=== PATIENT | female | born 1980 | race Caucasian/White ===

== ENCOUNTER → 2020-04-12 13:40 | Outpatient (BNVA) | payer OTHER, SELFPAY | PROVIDERS: Visit Provider Nurse Practitioner Family | DX: Z20.828 Contact with and (suspected) exposure to other viral communicable diseases (principal); J06.9 Acute upper respiratory infection, unspecified; R43.0 Anosmia | CPT/HCPCS: 87635 ==

== ENCOUNTER 2020-06-28 08:57 | Outpatient (CLI) | payer OTHER, SELFPAY ==
--- NOTE | 2020-06-28 09:15 | XR_ITS ---
WS: [id number] CERVICAL SPINE TECHNIQUE: 3 views of the cervical spine CLINICAL INFORMATION: NECK PAIN COMPARISON: None. FINDINGS: Straightening of the normal cervical lordosis. Normal C1-2 articulation. Mild joint space narrowing C 5-6. Slight anterior hypertrophic spurring at C5-6. Lung apices are well aerated. Mild facet arthropa thy throughout the cervical spine. XR/XR cervical spine 3V* [id number] IMPRESSION: 1. Straightening of the normal cervical lordosis with mild spondylitic changes . 2. Disc space narrowing worse at C5-6.
== END 2020-06-28 08:58 | disposition home or self-care (01) ==
LOC: RADOUTREAD 09:08 → RADWPI 09:37
PROVIDERS: PCP Nurse Practitioner Family; Visit Provider Nurse Practitioner Family
DX: M54.2 Cervicalgia (principal)
CPT/HCPCS: 72040

== ENCOUNTER → 2022-03-01 13:00 | Outpatient (BNVA) | payer OTHER, BC, SELFPAY | PROVIDERS: Visit Provider Obstetrics & Gynecology | DX: Z12.4 Encounter for screening for malignant neoplasm of cervix (principal) | CPT/HCPCS: 87624 ==

== ENCOUNTER 2023-07-19 10:58 | Outpatient (CLI) | payer OTHER, SELFPAY ==
--- NOTE | 2023-07-19 11:13 | XR_ITS ---
WS: [id number] Cervical spine, 3 views, 07/19/2023 Clinical Data: cervical radicular pain Comparison: Cervical spine, 06/28/2020 Findings: No compression fractures are seen. There is minimal degenerative disc narrowing at C5-C6 wi th anterior spurring. There is no prevertebral soft tissue swelling. The odontoid is unremarkable. Th e soft tissues of the neck and the lung apices are normal. Impression: Degenerative disc narrowing at C5-C6 with small anterior osteophytes.
== END 2023-07-19 10:59 | disposition home or self-care (01) ==
LOC: RAD 11:01
PROVIDERS: PCP Family Medicine; Visit Provider Family Medicine
DX: M50.122 Cervical disc disorder at C5-C6 level with radiculopathy (principal)
CPT/HCPCS: 72040; 84443; 85651; 86140

== ENCOUNTER 2023-08-07 12:59 | Outpatient (CLI) | payer OTHER, SELFPAY ==
--- NOTE | 2023-08-07 13:03 | XRR_ITS ---
PROCEDURE INFORMATION: Exam: XR Bilateral Sacroiliac Joints Exam date and time: 08/07/2023 1:06 PM Age: 43 years old Clinical indication: Pain in coccyx area; Additional info: Chronic low back si joint tailbone pain TECHNIQUE: Imaging protocol: XR bilateral XR of the sacroiliac joints. Views: 3 or more views. COMPARISON: CR XR lumbar spine 2-3V* [id number] 08/07/2023 1:06 PM FINDINGS: Bones/joints: Minimal left-sided SI joint spurring on the inferior portion of the iliac side of the joint. No fracture or bony destructive lesion. Soft tissues: Normal. Organs: IUD in place. XR/XR sacroiliac jts m 3V [id number] IMPRESSION: Minimal left-sided SI joint spurring on the inferior portion of the iliac side of the joint.
--- NOTE | 2023-08-07 13:03 | XRR_ITS ---
PROCEDURE INFORMATION: Exam: XR Sacrum and Coccyx, 2 or More Views Exam date and time: 08/07/2023 1:06 PM Age: 43 years old Clinical indication: Pain in coccyx area; Additional info: Chronic low back si joint tailbone pain TECHNIQUE: Imaging protocol: XR of the sacrum and coccyx, 2 or more views. COMPARISON: CR XR lumbar spine 2-3V* [id number] 08/07/2023 1:06 PM FINDINGS: Bones/joints: Normal. No acute fracture. Soft tissues: Normal. Organs: IUD in place. XR/XR sacrum coccyx min 2V [id number] IMPRESSION: No acute findings.
--- NOTE | 2023-08-07 13:03 | XRR_ITS ---
PROCEDURE INFORMATION: Exam: XR Lumbosacral Spine Exam date and time: 08/07/2023 1:06 PM Age: 43 years old Clinical indication: Low back pain; Additional info: Chronic low back si joint tailbone pain TECHNIQUE: Imaging protocol: Radiologic exam of the lumbosacral spine. Views: 2 or 3 views. COMPARISON: CR XR sacrum coccyx min 2V [id number] 08/07/2023 1:06 PM FINDINGS: Bones/joints: Mild degenerative disc disease L4-L5 L5-S1. No fracture or bony destructive lesion. Soft tissues: Unremarkable. Organs: IUD in place. XR/XR lumbar spine 2-3V* [id number] IMPRESSION: No acute findings.
== END 2023-08-07 13:00 | disposition home or self-care (01) ==
LOC: RAD 13:00
PROVIDERS: PCP Family Medicine; Visit Provider Family Medicine
DX: M53.3 Sacrococcygeal disorders, not elsewhere classified (principal); M51.37 Other intervertebral disc degeneration, lumbosacral region
CPT/HCPCS: 72100; 72202; 72220; 82306

== ENCOUNTER 2023-10-08 11:27 | Outpatient (CLI) | payer OTHER, BC, SELFPAY ==
--- NOTE | 2023-10-08 11:45 | MR_ITS ---
WS: [id number] MRI LUMBAR SPINE NONCONTRAST HISTORY: M54.16 - Radiculopathy, lumbar region COMPARISON: None available. TECHNIQUE: Sagittal and axial multisequence imaging is submitted. Normal lumbar alignment with no compression fractures or marrow edema. Disc spaces and vertebral body heights are well-preserved. Conus terminates normally at L1-2 disc level. L1-L2: Normal. L2-L3: Normal. L3-L4: Mild ligamentum flavum and facet arthritis. L4-L5: Mild diffuse annular disc bulging with ligamentum flavum and facet disease. Small amount of fl uid in the facet joints. There is very slight disc contact on the RIGHT traversing L5 nerve root but no displacement. L5-S1: Mild annular disc bulging with a very shallow central disc protrusion. The disc bulging very s lightly contacts the RIGHT S1 nerve root with no displacement. No significant stenosis. MR/MR lumbar spine wo con* [id number] IMPRESSION: 1. No high-grade central or foraminal stenosis. 2. Very slight disc contact on the RIGHT traversing L5 and S1 nerve roots with out displacement. Very minimal contact with no stenosis. 3. No fractures. 4. Mild facet joint arthritis at L4-5.
== END 2023-10-08 11:28 | disposition home or self-care (01) ==
LOC: RAD 11:27
PROVIDERS: PCP Family Medicine; Visit Provider Anesthesiology Pain Medicine
DX: M47.26 Other spondylosis with radiculopathy, lumbar region (principal)
CPT/HCPCS: 72148

== ENCOUNTER 2023-10-10 14:00 | Outpatient (CLI) | payer OTHER, BC, SELFPAY | END 2023-10-10 14:01 | disposition home or self-care (01) | LOC: SLEEP 10-11 11:44 | PROVIDERS: PCP Family Medicine; Visit Provider Family Medicine | DX: G47.33 Obstructive sleep apnea (adult) (pediatric) (principal) | CPT/HCPCS: G0399 ==

== ENCOUNTER 2024-01-07 10:44 | Outpatient (CLI) | payer OTHER, BC, SELFPAY ==
--- NOTE | 2024-01-07 10:52 | XR_ITS ---
WS: [id number] XR hip RT 2-3V wo/w pel* [id number] REASON FOR EXAM: right hip pain FINDINGS: No fracture or focal bone lesion. Joint spaces intact and relatively well preserved. Minimal subchondral sclerosis and osteophytosis of the acetabulum. No soft tissue abnormality. XR/XR hip RT 2-3V wo/w pel* [id number] IMPRESSION: Minimal osteoarthritis.
== END 2024-01-07 10:45 | disposition home or self-care (01) ==
LOC: RAD 10:49
PROVIDERS: PCP Family Medicine; Visit Provider Family Medicine
DX: M25.551 Pain in right hip (principal)
CPT/HCPCS: 73502

== ENCOUNTER 2024-02-28 13:31 | Outpatient (CLI) | payer OTHER, BC, SELFPAY ==
--- NOTE | 2024-02-28 13:45 | MR_ITS ---
WS: [id number] MRI HEAD WITH CONTRAST TECHNIQUE: Sagittal T1, T2 axial, T2 axial FLAIR, axial susceptibility weighted imaging, axial diffus ion weighted images, and coronal T2 images were obtained. Pre and post-T1 axial and post T1 coronal i mages. ADC and FSPGR images. CLINICAL INFORMATION: multiple sclerosis testing COMPARISON: None. FINDINGS: No evidence of restricted diffusion to suggest acute ischemia. Ventricular system and basal cisterns are patent. A few small foci of hyperintensity in the supratentorial white matter mainly in a frontal and periventricular distribution. This is nonspecific in a patient this age but can be seen with hyp ertension, diabetes and migraine headaches. Demyelinating disease is an additional consideration cons idering history No abnormal gadolinium enhancement. Corpus callosum appears normal. No hemosiderin on susceptibly margo ghted images. IMPRESSION 1. No evidence of restricted diffusion to suggest acute ischemia. 2. Mild patchy supratentorial white matter changes nonspecific in a patient of this age but can be s een with hypertension, diabetes, and migraine headaches. Demyelinating disease is an additional consi deration given history 3. Corpus callosum appears normal. 4. No abnormal gadolinium enhancement. 5. No hemosiderin on the susceptibly weighted images.
[2024-02-28] MEDS: gadobenate dimeglumine 20 mL vial 16 ML IV (14:59)
== END 2024-02-28 13:32 | disposition home or self-care (01) ==
LOC: RAD 13:32
PROVIDERS: PCP Family Medicine; Visit Provider Family Medicine
DX: M62.81 Muscle weakness (generalized) (principal); R20.0 Anesthesia of skin; R20.2 Paresthesia of skin
CPT/HCPCS: 70553

== ENCOUNTER → 2024-03-14 10:03 | Outpatient (BNVA) | payer OTHER, BC, SELFPAY | PROVIDERS: PCP Family Medicine; Visit Provider Student in an Organized Health Care Education/Training Program | DX: G56.01 Carpal tunnel syndrome, right upper limb (principal) | CPT/HCPCS: 73130 ==

== ENCOUNTER → 2024-03-25 07:19 | Outpatient (BNVA) | payer OTHER, BC, SELFPAY | PROVIDERS: PCP Family Medicine; Visit Provider Family Medicine | DX: Z00.00 Encounter for general adult medical examination without abnormal findings (principal) | CPT/HCPCS: 80053; 80061; 83036; 84443; 85025 ==

== ENCOUNTER → 2024-04-02 13:11 | Outpatient (BNVA) | payer OTHER, BC, SELFPAY | PROVIDERS: PCP Family Medicine; Visit Provider Nurse Practitioner Women's Health | DX: Z30.431 Encounter for routine checking of intrauterine contraceptive device (principal) | CPT/HCPCS: 76830 ==

== ENCOUNTER 2024-04-10 07:07 | Outpatient (CLI) | payer OTHER, BC, SELFPAY ==
--- NOTE | 2024-04-10 07:15 | MR_ITS ---
WS: [id number] MRI CERVICAL SPINE NONCONTRAST TECHNIQUE: Sagittal T1, T2 and STIR imaging. Axial T2, gradient, and fiesta imaging. CLINICAL INFORMATION: cervical radiculopathy COMPARISON: None. FINDINGS: Straightening of the normal cervical lordosis. Cord signal is normal. Disc bulging worse at C4-C6. C2-C3: Mild facet arthropathy. Mild RIGHT foraminal narrowing. C3-C4: Mild facet arthropathy. Spinal canal and foramen are patent. C4-C5: Mild disc bulge with osteophytic ridging. Mild facet arthropathy. Spinal canal and foramen are patent. C5-C6: Mild disc osteophyte complex with endplate ridging. Mild LEFT foraminal narrowing. Spinal gerald l is patent. Mild facet arthropathy. C6-C7: Mild disc osteophyte complex with slight indentation on the cervical cord. Mild central canal stenosis. Moderate to severe LEFT bony foraminal narrowing. RIGHT foramen is patent. Mild facet arthr opathy. C7-T1: Spinal canal and foramen are patent. Visualized brain stem structures: Normal. Prevertebral soft tissues: Normal. Slightly low-lying cerebellar tonsils. MR/MR cervical spin wo con* [id number] IMPRESSION: 1. Disc osteophyte complex with small central protrusion C6-7. Mild central ca nal stenosis. Moderate to severe LEFT bony foraminal narrowing at this level. 2. Mild LEFT C5-C6 bony foraminal narrowing.
== END 2024-04-10 07:08 | disposition home or self-care (01) ==
LOC: RAD 07:08
PROVIDERS: PCP Family Medicine; Visit Provider Family Medicine
DX: M54.12 Radiculopathy, cervical region (principal); M99.61 Osseous and subluxation stenosis of intervertebral foramina of cervical region; M25.78 Osteophyte, vertebrae
CPT/HCPCS: 72141

== ENCOUNTER → 2024-04-17 11:14 | Outpatient (BNVA) | payer OTHER, BC, SELFPAY | PROVIDERS: PCP Family Medicine; Visit Provider Student in an Organized Health Care Education/Training Program | DX: M25.551 Pain in right hip (principal) | CPT/HCPCS: 73502 ==

== ENCOUNTER → 2024-04-22 08:49 | Outpatient (BNVA) | payer OTHER, BC, SELFPAY | PROVIDERS: PCP Family Medicine; Referring Provider Family Medicine; Visit Provider Orthopaedic Surgery | DX: M54.12 Radiculopathy, cervical region (principal) | CPT/HCPCS: 72050 ==

== ENCOUNTER 2024-05-21 09:51 | Day surgery (SDC) | payer OTHER, BC, SELFPAY ==
[2024-05-21 10:14] VITALS: BP 132/82; PULSE 70; RESP 18; TEMP 36.7; O2SAT 98
[2024-05-21 10:15] VITALS: BMI 30.9
[2024-05-21 10:15] LABS: OR HCG Qualitative Urine Negative (Negative)
[2024-05-21] MEDS: sodium chloride 0.9% 1,000 ML 30 ML IV (10:27)
[2024-05-21] MEDS: acetaminophen 1,000 MG/100 ML PIGGYBACK 400 MG IV (10:28)
[2024-05-21] MEDS: ketorolac 30 mg/mL INJ IVP (10:31)
[2024-05-21] MEDS: scopolamine 1 mg PATCH 1 PATCH TRANSDERMA (10:32)
--- NOTE | 2024-05-21 10:57 | P.ANESASSM_ITS ---
Pre-Anesthetic Assessment Height/Weight: Height 5 ft 1 in Weight 164 lb Temp Pulse Resp BP Pulse Ox O2 Del Method 98.1 F 70 18 132/82 98 Room Air 05/21/24 10:14 05/21/24 10:14 05/21/24 10:14 05/21/24 10:14 05/21/24 10:14 05/21/24 10:18 Preop Diagnosis: Carpal tunnel syndrome Operation Date: 05/21/24 12:05 Proposed Procedures p Carpal Tunnel Release(Right) - Jamie Perez, DO Was Beta Holly taken within 24 hours: N/A Was Clonidine taken within 24 hours: N/A Last intake: Intake Last Liquid Date 05/20/24 Last Liquid Time 22:00 Last Solid Date 05/20/24 Last Solid Time 22:00 Social No alcohol and No tobacco Exam alert, oriented x 3, clear to auscultation bilaterally and regular rate & rhythm Airway Submandibular: within normal limits Cervical ROM: within normal limits Mallampati: Class II Dentition: full Anesthetic Plan ASA status: 3 Anesthesia: MAC Other: No prior issues with anesthesia NPO since yesterday History of MARIUM, on CPAP GERD on omeprazole Chronic migraines Patient is able to perform ADLs hCG negative Plan for MAC anesthesia with local via surgeon Medications/Allergies Home Medications Medication Instructions Recorded Confirmed Last Taken Type omeprazole 40 mg capsule,delayed 40 mg PO DAILY #90 caps 08/07/23 05/20/24 05/20/24 Rx release CPAP (Auto-Titrating CPAP) #1 ea 10/17/23 04/22/24 Unknown Rx levonorgestrel 21 mcg/24 hr (up to intrauterine 04/01/24 04/22/24 Unknown History 8 years) 52 mg intrauterine device (Mirena) meloxicam 7.5 mg tablet 7.5 mg PO DAILY #30 tabs 04/26/24 05/20/24 Unknown Rx venlafaxine 37.5 mg 37.5 mg PO DAILY #90 caps 04/26/24 05/20/24 05/20/24 Rx capsule,extended release 24 hr (Effexor XR) gabapentin 300 mg capsule 300 mg PO BID 05/20/24 05/20/24 05/20/24 History Allergies Allergy/AdvReac Type Severity Reaction Status Date / Time amoxicillin Allergy Severe tongue Verified 04/22/24 08:52 swelling sumatriptan [From Imitrex] Allergy Severe shortness Verified 04/22/24 08:52 of breath, burning in neck and back tramadol Allergy Severe burning in Verified 04/22/24 08:52 neck, shortness of breath, chest pressure, n/v carbamazepine [From Tegretol] Allergy Intermediate rash Verified 04/22/24 08:52 latex Allergy Mild ADR-Itching Verified 04/22/24 08:52 Current Medications Generic Name Dose Route Start Last Admin Trade Name Aditi PRN Reason Stop Dose Admin Sodium Chloride 1,000 mls @ 30 mls/hr 05/21/24 10:15 05/21/24 10:27 Sodium Chloride 0.9% IV 05/22/24 10:14 30 mls/hr .Q24H DARLINE Administration PFSH Anesthesia Medical History History of gestational diabetes History of seizure disorder petit mal seizures as a child, off of meds since 1995 Depression Anxiety Migraines Chronic fatigue syndrome Fibromyalgia GERD (gastroesophageal reflux disease) Surgical History History of laparoscopic cholecystectomy Family History Mother Hypercholesteremia Thyroid disease Hypertension Grandfather Diabetes Denies family history of Colon cancer Ovarian cancer Heart disease Breast cancer Uterine cancer Stroke Social History Smoking and tobacco/nicotine status: never used tobacco/nicotine Quit status (tobacco/nicotine): has quit using Year quit tobacco: 2013 Alcohol intake: never Substance/Drug Use: never Lives independently: Yes Household members: spouse and children Marital status: Marital status details: 2003 Number of children: 3 Current occupational status: employed 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
--- NOTE | 2024-05-21 12:11 | P.HP_ITS ---
Same Day Surgery H&P Indication for Procedure/HPI DATE OF PROCEDURE: May 21, 2024 CHIEF COMPLAINT/INDICATIONFOR SURGICAL PROCEDURE: Right carpal tunnel syndrome PREOP DIAGNOSIS: Right carpal tunnel syndrome PLANNED PROCEDURE: Operation Date: 05/21/24 12:05 Proposed Procedures p Carpal Tunnel Release(Right) - Jamie Perez DO Medications/Allergies* Home Medications Medication Instructions Recorded Confirmed Type levonorgestrel 21 mcg/24 hr (up to intrauterine 04/01/24 04/22/24 History 8 years) 52 mg intrauterine device (Mirena) gabapentin 300 mg capsule 300 mg PO BID 05/20/24 05/20/24 History Allergies/Adverse Reactions Allergy/AdvReac Type Severity Reaction Status Date / Time amoxicillin Allergy Severe tongue Verified 04/22/24 08:52 swelling sumatriptan [From Imitrex] Allergy Severe shortness Verified 04/22/24 08:52 of breath, burning in neck and back tramadol Allergy Severe burning in Verified 04/22/24 08:52 neck, shortness of breath, chest pressure, n/v carbamazepine [From Tegretol] Allergy Intermediate rash Verified 04/22/24 08:52 latex Allergy Mild ADR-Itching Verified 04/22/24 08:52 Current Medications: Generic Name Dose Route Start Last Admin Trade Name Freq PRN Reason Stop Dose Admin Sodium Chloride 1,000 mls @ 30 mls/hr 05/21/24 10:15 05/21/24 10:27 Sodium Chloride 0.9% IV 05/22/24 10:14 30 mls/hr .Q24H DARLINE Administration Pertinent History/Comorbid Conditions* Medical History (Updated 04/15/24 @ 16:12 by Queenie Moura NP) History of gestational diabetes History of seizure disorder petit mal seizures as a child, off of meds since 1995 Depression Anxiety Migraines Chronic fatigue syndrome Fibromyalgia GERD (gastroesophageal reflux disease) Surgical History (Updated 01/18/21 @ 10:06 by Apple Renteria DO) History of laparoscopic cholecystectomy Family History (Updated 07/19/23 @ 10:20 by Maureen Estrella MD) Diabetes Grandfather Hypercholesteremia Mother Hypertension Mother Thyroid disease Mother Denies family history of Colon cancer Ovarian cancer Heart disease Breast cancer Uterine cancer Stroke Social History Smoking and tobacco/nicotine status: never used tobacco/nicotine Quit status (tobacco/nicotine): has quit using Year quit tobacco: 2014 Alcohol intake: never Substance/Drug Use: never Lives independently: Yes Household members: spouse and children Marital status: Marital status details: 2003 Number of children: 3 Current occupational status: employed 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 No pain. Negative Spurling's Negative Stephenson's Negative Tinel's @ shoulders. Normal ROM Negative Tinel's @ elbows. Normal ROM Positive median nerve compression test on right Positive Tinel's on right at wrist Mildly positive median nerve compression test on left Negative Tinel's on left Positive Phalen's on right Negative Phalen's on left Thenar weakness on right No thenar atrophy noted, bilaterally Good intrinsic strength No A1 edgard TTP over digits Negative Tinel's over 1st dorsal compartment, bilaterally Recommendations Surgery/Procedure today Other Plans: Plan to proceed to the OR today for right carpal tunnel release. Patient understands the ins and outs of procedure the risk benefits complication alternatives surgery and through shared decision-making elects proceed with surgical intervention. All questions answered at this time. Coding Level of Care Code Acute Code for Chg Juan Jose
[2024-05-21] MEDS: clindamycin 900 MG/50 ML PREMIX 100 MG IV (12:27)
[2024-05-21] MEDS: ROPivacaine 0.5% SDV 30 mL 150 MG INJECTION (12:38)
[2024-05-21] MEDS: lidocaine-epi 1% PF 1:200,000 30 mL SDV INJECTION (12:38)
--- NOTE | 2024-05-21 13:09 | P.BOP_ITS ---
Date of Procedure: 05/21/2023 Surgeon: Jamie Perez DO Emergency Telecommunications Dispatcher(s): None Procedure(s) performed: Right carpal tunnel release Findings of the procedure(s): Patient found have right carpal tunnel syndrome underwent procedure as planned without issues or complications Estimated blood loss: 2 mL Specimen(s) removed: None Post-operative diagnosis: Right carpal tunnel syndrome
[2024-05-21 13:10] VITALS: BP 111/66; PULSE 87; RESP 16; TEMP 36.2; O2SAT 96
--- NOTE | 2024-05-21 13:10 | PM.OP ---
Operative Report Date of procedure: May 21, 2024 Surgeon: Jamie Perez DO Procedure: Preop Diagnosis: Right Carpal Tunnel Syndrome Post-op diagnosis: Same Procedure done: 1. Right carpal tunnel release Surgeon: Jamie Perez DO Anesthesia: MAC (Local) Estimated blood loss: [ 2]mL Tourniquet time [ 6]minutes IV fluids: See anesthesia record Complications: None Findings: See operative report narrative Condition: stable Disposition: same day Brief History: Patient is a pleasant [43 ]year-old [female ] with right carpal tunnel syndrome. Patient has been worked up in the outpatient setting findings and physical examination consistent with this. Patient nerve conduction studies consistent with carpal tunnel syndrome. We detailed out patient's risk benefits complication alternatives with surgical and nonsurgical treatment options. Through shared decision making, patient agrees to proceed with surgical intervention of the right carpal tunnel release . Patient understands and agrees with current plan. All questions answered. Procedure: Patient seen and evaluated in the preoperative holding area. Consent was reviewed and signed with patient. Correct extremity was marked. Patient was seen evaluated by the anesthesia department once cleared for surgery was brought back to the operative suite. Patient was kept on [facility] in supine position all bony prominences were well-padded patient properly secured to the bed. Right upper extremity was then placed onto an armboard. A nonsterile tourniquet was applied to the Right upper arm. Patient underwent anesthesia per the anesthesia department. Patient's Right upper extremity was then prepped and draped in standard orthopedic fashion. Final timeout performed. Patient received appropriate preoperative antibiotics. Under sterile aseptic technique patient received local anesthesia over the preplanned carpal tunnel incision site. Esmarch was used to exsanguinate the Right upper extremity and tourniquet was insufflated to 250 mmHg. A standard mini open Right carpal tunnel incision was made. Starting distally at Segura's cardinal line in line with the fourth ray extending proximally distal to the wrist crease centered over the carpal tunnel. Sharp scalpel incision was made through skin and subcutaneous tissue. Self-retaining retractor was placed and the palmar fascia was identified. This was then split longitudinally and direct visualization of the transverse carpal ligament was then made. I then utilizing scalpel feathered through the transverse carpal ligament until I entered the floor of the transverse carpal tunnel ligament into the carpal tunnel. Next I switched to dissection scissors and completed my release of the transverse carpal ligament distally with care to protect the recurrent motor branch. I completely released into the palmar fat and until no entrapment was noted distally. Care was made to protect the superficial palmar arch during my distal dissection. Next I utilized a nasal speculum placed on top of the transverse carpal ligament and utilize this to retract the subcutaneous fat and tissue and under direct loupe magnification was able to identify the transverse carpal ligament. Next I then protected the contents of the carpal tunnel and subsequently utilizing dissection scissors under loupe magnification completely released the transverse carpal ligament proximally into the antebrachial fascia. Care was made to protect the palmar cutaneous branch by keeping my scissors curved ulnarly. Once completely released, I then placed my [place] and had appropriate decompression of the carpal tunnel proximally as well as distally. I then inspected the contents of the carpal tunnel which showed an hourglass shape of the median nerve showing its compression. No masses were noted. Tendons appeared healthy. Wound was then thoroughly irrigated. Tourniquet deflated. Hemostasis satisfactory with bipolar electrocautery. I then closed the incision with interrupted nylon stitches. Xeroform 4 x 4's and a bulky soft dressing was applied. Patient was then awakened from anesthesia and taken to PACU in stable condition. Patient tolerated procedure without complications. Disposition: Patient taken to PACU in stable condition recovering well. Dressing clean dry and intact. Patient will receive appropriate discharge instructions as well as pain medication postoperatively. Patient to follow-up with me in the office in 2 weeks. They understand they may be weightbearing as tolerated to the right hand. Patient should keep incision clean dry and intact. Patient understands if any questions or concerns may contact the office.
[2024-05-21 13:15] VITALS: BP 116/69; PULSE 95; RESP 16; O2SAT 95
--- NOTE | 2024-05-21 13:16 | ECG_ITS ---
[facility] Date: 2024-05-21 Pat Name: Tosin Jimenez Department: Room: Gender: Female Etl Analyst: : 1980 Requested By: Chris Cheema Order Number: [id number] Crowley MD: Jalen Candelaria M.D. Measurements Intervals [place] Rate: 75 P: 57 MS: 143 QRS: 11 QRSD: 84 T: 9 QT: 342 QTc: 382 Interpretive Statements SINUS RHYTHM No previous ECG available for comparison Electronically Signed On 05-24-2024 23:13:41 [employer] PHOTOGRAPHY by Jalen Candelaria M.D. [email or web address]
[2024-05-21 13:20] VITALS: BP 112/73; PULSE 85; RESP 16; O2SAT 96
[2024-05-21 13:23] VITALS: BP 117/66; PULSE 76; RESP 16; TEMP 36.2; O2SAT 96
[2024-05-21 13:46] VITALS: BP 104/60; PULSE 80; RESP 18; O2SAT 96
--- NOTE | 2024-05-21 13:54 | ANE.PACU2 ---
Inpatient post-anesthesia follow up: Airway intact: Yes Vital signs: Temperature 97.2 F Pulse Rate 80 Respiratory Rate 18 Blood Pressure 104/60 Pulse Oximetry 96 Oxygen Delivery Me thod Room Air Oxygen Flow Rate Fraction of Inspir ed Oxygen Hydration adequate: Yes Nausea and vomiting: No Pain level: 1 Mental status: Baseline
== END 2024-05-21 13:54 | disposition home or self-care (01) ==
PROVIDERS: Student in an Organized Health Care Education/Training Program; PCP Family Medicine; Visit Provider Student in an Organized Health Care Education/Training Program
PROC: (CPT 64721; principal; 2024-05-21 12:05)
DX: G56.01 Carpal tunnel syndrome, right upper limb (principal); G47.33 Obstructive sleep apnea (adult) (pediatric); K21.9 Gastro-esophageal reflux disease without esophagitis; Z87.891 Personal history of nicotine dependence; M79.7 Fibromyalgia
CPT/HCPCS: 64721; 81025; 93005; J0131; J1885; J2250; J2704; J2795; J3010; J3490; J7030

== ENCOUNTER → 2024-06-09 15:21 | Outpatient (BNVA) | payer OTHER, BC, SELFPAY | PROVIDERS: PCP Family Medicine; Visit Provider Nurse Practitioner Women's Health | DX: N83.9 Noninflammatory disorder of ovary, fallopian tube and broad ligament, unspecified (principal) | CPT/HCPCS: 76830 ==

== ENCOUNTER → 2024-06-27 12:57 | Outpatient (BNVA) | payer OTHER, BC, SELFPAY | PROVIDERS: PCP Family Medicine; Visit Provider Family Medicine | DX: R10.9 Unspecified abdominal pain (principal) | CPT/HCPCS: 81000; 81003 ==

== ENCOUNTER → 2024-06-30 08:45 | Outpatient (BNVA) | payer OTHER, BC, SELFPAY | PROVIDERS: PCP Family Medicine; Referring Provider Family Medicine; Visit Provider Psychiatry & Neurology Neurology | DX: M51.16 Intervertebral disc disorders with radiculopathy, lumbar region (principal); M79.609 Pain in unspecified limb; M25.50 Pain in unspecified joint; G93.32 Myalgic encephalomyelitis/chronic fatigue syndrome; G43.909 Migraine, unspecified, not intractable, without status migrainosus; M79.7 Fibromyalgia | CPT/HCPCS: 36415; 82607; 82746; 83735; 83921; 84591; 85651; 86140; 86160; 86162; 86235; 86255; 86376; 86431 ==

== ENCOUNTER → 2024-07-04 11:14 | Outpatient (BNVA) | payer OTHER, BC, SELFPAY | PROVIDERS: PCP Family Medicine; Visit Provider Family Medicine | DX: R10.9 Unspecified abdominal pain (principal) | CPT/HCPCS: 81000 ==

== ENCOUNTER 2024-07-11 07:20 | Outpatient (CLI) | payer OTHER, BC, SELFPAY ==
--- NOTE | 2024-07-11 08:00 | US_ITS ---
WS: [id number] Complete ABDOMINAL ULTRASOUND HISTORY: abdominal pain COMPARISON: 06/14/2023 Liver: 12.3 cm in length. Normal size liver and echogenicity. No bile duct dilatation or mass. Portal Vein: Normal hepatopetal flow with monophasic waveform. Gallbladder: Prior cholecystectomy. CBD: 0.5 cm Pancreas: Obscured by bowel gas. Right kidney: 8.8 cm x 3.9 x 4.2 cm. Cortex: 1.7 cm. Normal size and echogenicity. No hydronephrosis or mass. Left kidney: 9.6 cm x 4.7 cm x 4.3 cm. Cortex: 1.2 cm. Normal size and echogenicity. No hydronephrosis or mass. Spleen: 7.5 cm. Normal size and echogenicity. Aorta and IVC: Unremarkable abdominal aorta and IVC. US/US abdomen complete* [id number] Impression: 1. Prior cholecystectomy. 2. Nonvisualization of the pancreas by bowel gas. 3. Remaining abdomen ultrasound is negative.
== END 2024-07-11 07:21 | disposition home or self-care (01) ==
PROVIDERS: PCP Family Medicine; Visit Provider Family Medicine
DX: R10.9 Unspecified abdominal pain (principal); Z90.49 Acquired absence of other specified parts of digestive tract
CPT/HCPCS: 76700

== ENCOUNTER 2024-07-16 07:19 | Outpatient (CLI) | payer OTHER, BC, SELFPAY ==
--- NOTE | 2024-07-16 08:00 | MR_ITS ---
WS: [id number] MRI THORACIC SPINE WITH CONTRAST TECHNIQUE: Sagittal T1, T2 and STIR imaging. Axial T2 imaging. Post gadolinium imaging was obtained. CLINICAL INFORMATION: M79.609 - Pain in unspecified limb COMPARISON: None. FINDINGS: Mild thoracic kyphosis. Normal cord signal. No enhancing lesion. No demyelinating lesions visualized in the thoracic cord. CSF pulsation artifact in the dorsal spinal canal. No cord atrophy. A few incidental hemangiomas. Tiny shallow disc protrusions at T4-T5 and T5-T6. No other acute findings. MR/MR thoracic spine wo/w [id number] IMPRESSION: 1. Normal cord signal. No enhancing lesions. 2. Mild thoracic kyphosis.
[2024-07-16] MEDS: gadobenate dimeglumine 20 mL vial 17 ML IV (08:40)
== END 2024-07-16 07:20 | disposition home or self-care (01) ==
PROVIDERS: PCP Family Medicine; Visit Provider Psychiatry & Neurology Neurology
DX: M79.609 Pain in unspecified limb (principal); M79.10 Myalgia, unspecified site; M51.16 Intervertebral disc disorders with radiculopathy, lumbar region; M40.294 Other kyphosis, thoracic region; R93.7 Abnormal findings on diagnostic imaging of other parts of musculoskeletal system; D18.09 Hemangioma of other sites
CPT/HCPCS: 72157

== ENCOUNTER → 2024-08-15 11:26 | Outpatient (BNVA) | payer OTHER, BC, SELFPAY | PROVIDERS: PCP Family Medicine; Visit Provider Student in an Organized Health Care Education/Training Program | DX: M25.551 Pain in right hip (principal) | CPT/HCPCS: 77002 ==

== ENCOUNTER 2024-08-26 12:09 | Outpatient (CLI) | payer OTHER, BC, SELFPAY ==
[2024-08-26 13:17] LABS: C Reactive Protein 6.9 mg/L (0.0-4.9)
[2024-08-27 14:50] LABS: RPR w(Moniotor) w/REFL Titer NON-REACTIVE (NON-REACTIVE)
[2024-08-27 16:51] LABS: Lyme AB Screen <0.90 index
== END 2024-08-26 12:10 | disposition home or self-care (01) ==
LOC: LAB 12:11
PROVIDERS: PCP Family Medicine; Visit Provider Psychiatry & Neurology Neurology
DX: R20.8 Other disturbances of skin sensation (principal); R20.2 Paresthesia of skin; G40.A09 Absence epileptic syndrome, not intractable, without status epilepticus; G43.119 Migraine with aura, intractable, without status migrainosus; M79.10 Myalgia, unspecified site; M25.50 Pain in unspecified joint; G93.32 Myalgic encephalomyelitis/chronic fatigue syndrome
CPT/HCPCS: 84207; 86140; 86592; 86618; 86666; 86757

== ENCOUNTER 2024-09-05 09:36 | Outpatient (CLI) | payer OTHER, BC, SELFPAY ==
--- NOTE | 2024-09-05 10:00 | FL_ITS ---
WS: [id number] LUMBAR PUNCTURE UNDER FLUOROSCOPY: OBTAIN CSF FOR ANALYSIS HISTORY: R56.9 - Unspecified convulsions COMPARISON: None available. FLUOROSCOPY TIME: 0min [id number] # of spot films: 1 Procedure, complications, and risk and benefits explained to the patient. Consent was obtained. Recent laboratory work and medication are reviewed prior to procedure. Skin over the lumbar is cleansed with ChloraPrep and anesthetized with 1% buffered lidocaine. Access into the thecal sac is achieved. CSF is removed in a sterile manner and placed in the sterile tubes. Approximately 13 ml is removed without difficulty. Opening pressure: 8 cm H2O. Closing pressure: Same. No complications are encountered. CSF this into the laboratory for analysis as requested. FL/FL guided lumbarpunc dx* [id number] IMPRESSION: Uncomplicated lumbar puncture for CSF.
[2024-09-05 12:24] LABS: Appearance CSF CLEAR (CLEAR); Color CSF COLORLESS (COLORLESS); PATH Referral YES
[2024-09-05 12:25] LABS: Mononuclear WBC CSF % 50 % (50-90); Polynuclear WBC CSF % 50 % (0-10); Red Blood Cell CSF 1 10^3/uL (0-0); White Blood Cell CSF 2 /uL (0-5)
[2024-09-05 12:51] LABS: Glucose CSF 61 mg/dL (40-70); Total Protein CSF 17 mg/dL (15-45)
[2024-09-06 08:04] LABS: Lymes IGG WB <0.90 index
[2024-09-06 16:09] LABS: HIV RNA (CPY/ML) NOT DETECTED (NOT DETECTED); HIV RNA LOG NOT DETECTED copies/mL (NOT DETECTED)
[2024-09-07 21:09] LABS: Angiotensin Convert Enzy CSF 9 U/L (<=15)
[2024-09-08 13:39] LABS: JC Polyoma Virus DNA PCR CSF NOT DETECTED; JC Polyoma Virus DNA PCR CSF NOT DETECTED Log IU/mL
[2024-09-08 15:39] LABS: Epstein Barr Virus Qual PCR Not Detected (Not Detected); Epstein Barr Virus Source Results Below
[2024-09-08 23:39] LABS: Cytomegalovirus DNA,QL RT PCR Not Detected (Not Detected); Cytomegalovirus Source Results Below
[2024-09-09 13:45] LABS: Immunoglobulin G, CSF 0.9 mg/dL (0.8-7.7)
[2024-09-09 14:00] LABS: Oligoclonal Bands IGG, CSF ABSENT (ABSENT)
[2024-09-09 18:43] LABS: Toxoplasma Gondii IgG CSF <0.90; Toxoplasma Gondii IgM CSF <0.80
[2024-09-09 23:24] LABS: VDRL on CSF NON-REACTIVE
[2024-09-10 15:10] LABS: Poliovirus Type 3 Titer >1:128
[2024-09-12 08:15] LABS: IgG CSF 0.9 mg/dL (0.8-7.7); IgG Index , CSF 0.45 (<0.70); Immunoglobulin G 805 mg/dL (600-1640); Synthesis Rate IgG, CSF -3.2 mg/24 h (-9.9 TO +3.3)
[2024-09-12 11:25] LABS: West Nile Virus AB (IGG) <1.30 index; West Nile Virus AB (IGM) <0.90 index
[2024-09-12 17:59] LABS: GAD 65 IA-2 Antibody <5.4 U/mL (<5.4); GAD Insulin Autoantibody <0.4 U/mL (<0.4); Glutamic Acid Decarboxylase 65 <5 IU/mL (<5); Zinc Transporter 8 AB <10 U/mL (<15)
== END 2024-09-05 09:37 | disposition home or self-care (01) ==
LOC: RAD 09:37
PROVIDERS: PCP Family Medicine; Visit Provider Psychiatry & Neurology Neurology
DX: R20.8 Other disturbances of skin sensation (principal); R20.2 Paresthesia of skin; G40.A09 Absence epileptic syndrome, not intractable, without status epilepticus; G43.119 Migraine with aura, intractable, without status migrainosus; G56.10 Other lesions of median nerve, unspecified upper limb; G43.909 Migraine, unspecified, not intractable, without status migrainosus; G93.32 Myalgic encephalomyelitis/chronic fatigue syndrome; M79.10 Myalgia, unspecified site; M25.50 Pain in unspecified joint
CPT/HCPCS: 36415; 62328; 80503; 82040; 82042; 82164; 82784; 82945; 83520; 83916; 84157; 86337; 86341; 86382; 86403; 86592; 86617; 86777; 86778; 86788; 86789; 87015; 87070; 87075; 87116; 87205; 87206; 87327; 87496; 87536; 87798; 87799; 87801; 89050

== ENCOUNTER 2024-10-28 10:34 | Outpatient (CLI) | payer OTHER, BC, SELFPAY ==
--- NOTE | 2024-10-28 10:57 | XR_ITS ---
WS: [id number] XR chest 2V* [id number] REASON FOR EXAM: cough FINDINGS: The chest is unchanged compared to 04/15/2023. The heart and the mediastinum are within normal limits. Calcified granulomatous disease bilaterally. No acute pulmonary parenchymal or pleural abnormality. The bony thorax is intact with no significant focal abnormality. XR/XR chest 2V* [id number] IMPRESSION: Stable chest without acute abnormality.
== END 2024-10-28 10:35 | disposition home or self-care (01) ==
LOC: RAD 10:38
PROVIDERS: PCP Family Medicine; Visit Provider Family Medicine
DX: R05.9 Cough, unspecified (principal); J84.10 Pulmonary fibrosis, unspecified
CPT/HCPCS: 71046

== ENCOUNTER → 2024-10-29 13:03 | Outpatient (BNVA) | payer OTHER, BC, SELFPAY | PROVIDERS: PCP Family Medicine; Visit Provider Family Medicine | DX: Z91.018 Allergy to other foods (principal) | CPT/HCPCS: 82785; 86001; 86003; 86008 ==

== ENCOUNTER → 2024-11-04 10:35 | Outpatient (BNVA) | payer OTHER, BC, SELFPAY | PROVIDERS: PCP Family Medicine; Visit Provider Internal Medicine Rheumatology | DX: M25.50 Pain in unspecified joint (principal) | CPT/HCPCS: 36415; 80076; 82565; 83520; 84439; 84443; 85025; 85651; 86140; 86200; 86480; 86704; 86803; 86812; 87340 ==

== ENCOUNTER 2024-11-19 08:51 | Outpatient (CLI) | payer OTHER, BC, SELFPAY ==
--- NOTE | 2024-11-19 10:00 | CT_ITS ---
WS: [id number] CT ABDOMEN AND PELVIS WITH CONTRAST HISTORY: RUQ pain, acute on chronic TECHNIQUE: Imaging performed of the abdomen and pelvis with IV contrast. Single phase imaging of the abdomen. Coronal and sagittal reformats are submitted. All CT scans at [facility] use at least one of these dose optimization techniques: automated exposure control; mA and/or kV adjustment per patient size (includes targeted exams where dose is matched to clinical indication); or iterative reconstruction. IV CONTRAST: Omnipaque 350; 100 mL IV. Oral contrast: Yes. DLP: 446.96 mGy.cm COMPARISON: None available. Lower thorax: Thin linear scar RIGHT middle lobe. Heart is normal size. No hiatal hernia. Liver/biliary system: Normal size with no intrahepatic dilatation. Gallbladder: Status post cholecystectomy. Pancreas: Normal size pancreas and pancreatic duct. No adjacent inflammation. Spleen: Normal size spleen. No mass or infarct. Adrenal glands: Normal. Right kidney: Normal. Left kidney: Normal. Aorta: Minimal atherosclerotic plaque. Lymphadenopathy: None. Free fluid: None. GI tract: Stomach is nondistended. No small bowel obstruction. Mild to moderate diffuse constipation. Normal appendix. There are a few scattered diverticula in the descending colon. No acute diverticulitis. Abdominal wall: Fat containing umbilical hernia. Pelvis: Uterus is midline. Normal position of the IUD. LEFT ovarian cyst 4.0 x 2.9 cm. RIGHT ovary is normal size. Bones: No destructive bone lesions. Mild levoscoliosis. CT/CT abdomen pelvis w con* [id number] IMPRESSION: 1. No acute abdominal or pelvic abnormalities. 2. No renal obstruction. 3. Normal appendix. 4. Prior cholecystectomy. 5. Normal position of the IUD. 6. LEFT ovarian cyst 4.0 x 2.9 cm.
[2024-11-19] MEDS: iohexol 350 mg/mL 500 mL Btl (per mL) PO (10:29)
[2024-11-19] MEDS: iohexol 350 mg/mL 500 mL Btl (per mL) IV (10:31)
== END 2024-11-19 08:52 | disposition home or self-care (01) ==
LOC: RAD 08:53
PROVIDERS: PCP Family Medicine; Visit Provider Family Medicine
DX: R10.11 Right upper quadrant pain (principal); N83.202 Unspecified ovarian cyst, left side
CPT/HCPCS: 74177

== ENCOUNTER → 2025-02-27 09:05 | Outpatient (BNVA) | payer OTHER, SELFPAY | PROVIDERS: PCP Family Medicine; Visit Provider Family Medicine | DX: R30.0 Dysuria (principal) | CPT/HCPCS: 81000; 81003 ==

== ENCOUNTER → 2025-03-24 12:37 | Outpatient (BNVA) | payer OTHER, SELFPAY | PROVIDERS: Absent Provider Internal Medicine Rheumatology; PCP Family Medicine; Visit Provider Internal Medicine Rheumatology | DX: M25.50 Pain in unspecified joint (principal); Z79.899 Other long term (current) drug therapy | CPT/HCPCS: 36415; 80076; 82306; 82310; 82565; 83735; 84100; 84132; 85025; 85651; 86140 ==

== ENCOUNTER → 2025-04-13 10:40 | Outpatient (BNVA) | payer OTHER, SELFPAY | PROVIDERS: PCP Family Medicine; Visit Provider Family Medicine | DX: Z12.4 Encounter for screening for malignant neoplasm of cervix (principal) | CPT/HCPCS: 87624 ==